=== PATIENT | male | born 1985 | race Two or more races ===

== ENCOUNTER 2018-09-15 05:40 | Emergency (ER) | payer MEDICAID ==
[~2018-09-15] VITALS: Ht 170.2 cm; Wt 67.9 kg
[2018-09-15 05:42] VITALS: BP 118/76
== END 2018-09-15 08:55 | disposition left against medical advice (07) ==
LOC: ER 05:40
DX: Z53.21 Procedure and treatment not carried out due to patient leaving prior to being seen by health care provider (principal)